=== PATIENT | male | born 2000 | race American Indian/Alaskan Native ===

== ENCOUNTER 2019-04-11 02:15 | Emergency (ER) | payer SELFPAY ==
--- NOTE | 2019-04-11 03:02 | XRay Report ---
CHEST 2 VIEWS INDICATION / CLINICAL INFORMATION: cough and fever. COMPARISON: None available. FINDINGS: SUPPORT DEVICES: None. HEART / MEDIASTINUM: No significant abnormality. LUNGS / PLEURA: No significant pulmonary or pleural abnormality. No pneumothorax. ADDITIONAL FINDINGS: No significant additional findings. IMPRESSION: 1. No acute findings. Signer Name: Bello Fonseca MD Signed: 04/11/2019 2:58 AM Workstation Name: [id number]
[2019-04-11] MEDS ORDERED: predniSONE 20 MG TAB PO ONE (03:15)
[2019-04-11] MEDS ORDERED: IPRATROPIUM/ALBUTEROL SULFATE 3 ML AMPUL.NEB IH ONE ×2 (03:15→04:23)
--- NOTE | 2019-04-11 03:19 | Emergency Department Report ---
- General Chief Complaint: Upper Respiratory Infection Stated Complaint: CHEST TIGHTNESS/KARYNA/COLD SX/VOMITING Time Seen by Provider: 04/11/19 03:09 Source: patient Mode of arrival: Ambulatory Limitations: No Limitations - History of Present Illness Initial Comments: Patient is an 18-year-old male presents emergency room with complaints of cold symptoms that began a week ago. He has associated cough, chest tightness, congestion, rhinorrhea, chills. He denies any vomiting, diarrhea, shortness of breath, ear pain, sore throat. He states he has had a sick contact with cold symptoms. He states he took DayQuil with some relief. He states he has a past medical history of childhood asthma but has not had to use an albuterol inhaler in "years". He denies any allergies medications. - Related Data Previous Rx's Medication Instructions Recorded Last Taken Type ALBUTEROL Inhaler (OR & NICU) 2 puff IH QID PRN #8.5 gram 04/11/19 Unknown Rx [ProAir HFA Inhaler] predniSONE [Deltasone] 40 mg PO QDAY 5 Days #10 tab 04/11/19 Unknown Rx Allergies Allergy/AdvReac Type Severity Reaction Status Date / Time No Known Allergies Allergy Unverified 04/11/19 02:37 ED Review of Systems ROS: Stated complaint: CHEST TIGHTNESS/KARYNA/COLD SX/VOMITING Other details as noted in HPI Comment: All other systems reviewed and negative ED Past Medical Hx - Past Medical History Previous Medical History?: No - Surgical History Past Surgical History?: No - Social History Smoking Status: Never Smoker Substance Use Type: None - Medications Home Medications: Home Medications Medication Instructions Recorded Confirmed Last Taken Type ALBUTEROL Inhaler (OR & NICU) 2 puff IH QID PRN #8.5 gram 04/11/19 Unknown Rx [ProAir HFA Inhaler] predniSONE [Deltasone] 40 mg PO QDAY 5 Days #10 tab 04/11/19 Unknown Rx ED Physical Exam - General Limitations: No Limitations General appearance: alert, in no apparent distress - Head Head exam: Present: atraumatic, normocephalic - Eye Eye exam: Present: normal appearance - ENT ENT exam: Present: normal orophraynx, mucous membranes moist, TM's normal bilaterally, normal external ear exam - Respiratory Respiratory exam: Present: wheezes (mild expiratory wheeze). Absent: respiratory distress, rales, rhonchi, stridor, chest wall tenderness, accessory muscle use, decreased breath sounds, prolonged expiratory - Cardiovascular Cardiovascular Exam: Present: regular rate, normal rhythm, normal heart sounds. Absent: systolic murmur, diastolic murmur, rubs, gallop - Neurological Exam Neurological exam: Present: alert, oriented X3 - Psychiatric Psychiatric exam: Present: normal affect, normal mood - Skin Skin exam: Present: warm, dry, intact ED Course Vital Signs 04/11/19 04/11/19 04/11/19 02:24 02:36 05:22 Temperature 99.2 F 98.9 F Pulse Rate 106 H 91 H 91 H Respiratory 18 20 Rate Blood Pressure 102/55 Blood Pressure 110/62 [Left] O2 Sat by Pulse 91 96 98 Oximetry ED Medical Decision Making - Radiology Data Radiology results: report reviewed CHEST 2 VIEWS INDICATION / CLINICAL INFORMATION: cough and fever. COMPARISON: None available. FINDINGS: SUPPORT DEVICES: None. HEART / MEDIASTINUM: No significant abnormality. LUNGS / PLEURA: No significant pulmonary or pleural abnormality. No pneumothorax. ADDITIONAL FINDINGS: No significant additional findings. IMPRESSION: 1. No acute findings. Signer Name: Bello Fonseca MD Signed: 04/11/2019 2:58 AM Workstation Name: [id number] Transcribed By: SARAI Dictated By: Bello Fonseca MD Electronically Authenticated By: Bello Fonseca MD Signed Date/Time: 04/11/19 0258 - Medical Decision Making Patient is an 18-year-old male presents emergency room with complaints of cold symptoms that began a week ago. He has associated cough, chest tightness, congestion, rhinorrhea, chills. He denies any vomiting, diarrhea, shortness of breath, ear pain, sore throat. He states he has had a sick contact with cold symptoms. He states he took DayQuil with some relief. He states he has a past medical history of childhood asthma but has not had to use an albuterol inhaler in "years". He denies any allergies medications. Initial vitals were entered incorrectly, vitals are normal. On exam patient has mild expiratory wheezing bilaterally. Chest x-ray with no acute findings. Patient given 2 DuoNeb treatments and breath sounds improved. Patient also given steroid. Symptoms and examination consistent with viral URI and reactive airway. Patient given prescription for prednisone and albuterol inhaler. advised pt to please use medication as prescribed. May take Robitussin [id number] for your cough and congestion. increase your fluid intake over the next several days. may take tylenol or ibuprofen for any discomfort. Follow-up with a primary care doctor in the next 2-3 days for reevaluation. Return to the emergency room immediately for any new or worsening symptoms. - Differential Diagnosis PNA, URI, asthma, reactive airway, bronchitis, influenza, strep Critical care attestation.: If time is entered above; I have spent that time in minutes in the direct care of this critically ill patient, excluding procedure time. ED Disposition Clinical Impression: URI (upper respiratory infection) Qualifiers: URI type: unspecified viral URI Qualified Code(s): J06.9 - Acute upper respiratory infection, unspecified Reactive airway disease Qualifiers: Asthma severity: unspecified severity Asthma persistence: unspecified Asthma complication type: with acute exacerbation Qualified Code(s): J45.901 - Unspecified asthma with (acute) exacerbation Disposition: DC-01 TO HOME OR SELFCARE Is pt being admited?: No Does the pt Need Aspirin: No Condition: Stable Instructions: Upper Respiratory Infection (ED), Reactive Airways Disease (ED) Additional Instructions: Please use medication as prescribed. May take Robitussin [id number] for your cough and congestion. increase your fluid intake over the next several days. may take tylenol or ibuprofen for any discomfort. Follow-up with a primary care doctor in the next 2-3 days for reevaluation. Return to the emergency room immediately for any new or worsening symptoms. Prescriptions: predniSONE [Deltasone] 40 mg PO QDAY 5 Days #10 tab ALBUTEROL Inhaler (OR & NICU) [ProAir HFA Inhaler] 2 puff IH QID PRN #8.5 gram PRN Reason: Shortness Of Breath Referrals: LEONARD FONG MD [Staff Physician] - 2-3 Days [facility] [Outside] - 2-3 Days Forms: Work/School Release Form(ED) Print Language: [place]
[2019-04-11 05:24] VITALS: BP 110/62
== END 2019-04-11 05:35 | disposition home or self-care (01) ==
LOC: ED 02:15
DX: J45.901 Unspecified asthma with (acute) exacerbation (principal); J06.9 Acute upper respiratory infection, unspecified
CPT/HCPCS: 71046; 94640; 99283; J7512